=== PATIENT | female | born 1945 | race African-American/Black ===

== ENCOUNTER 2021-11-28 06:36 | Inpatient (IN) | payer OTHER ==
[~2021-11-28] VITALS: Ht 170.2 cm; Wt 99.8 kg
[2021-11-28 07:32] LABS: BASOPHILS % 0.3 % (0.0-1.0); EOSINOPHILS # (AUTO) 0.3 (0.0-0.4); EOSINOPHILS % 2.5 % (0.0-6.0); LYMPHOCYTES # (AUTO) 1.7 (1.0-3.2); LYMPHOCYTES % 17.2 % (18.0-39.1); MEAN CORPUSCULAR HEMOGLOBIN 31.6 pg (28-32); MEAN CORPUSCULAR HGB CONC 31.7 g/dL (31-35); MEAN CORPUSCULAR VOLUME 99.8 fL (81-99); MONOCYTES # (AUTO) 0.8 (0.2-0.8); MONOCYTES % 8.2 % (4.4-11.3); NEUTROPHILS % 71.4 % (38.7-80.0); PLATELET COUNT 232 x10e3/uL (140-360); RED BLOOD COUNT 4.11 x10e6/uL (3.6-5.1); RED CELL DISTRIBUTION WIDTH 12.9 % (11.7-14.4)
[2021-11-28] MEDS ORDERED: SODIUM CHLORIDE 0.9% 1000ML 1,000 ML ONE (07:34)
[2021-11-28] MEDS ORDERED: Clindamycin INJ 300 MG/50 ML 50 ML IV ONE (07:34)
[2021-11-28] MEDS ORDERED: LEVOFLOXACIN 500MG/D5W 100ML 100 ML IV ONE (07:46)
[2021-11-28 07:51] LABS: ANION GAP 16.1 mmol/L (8-16); BLOOD UREA NITROGEN 17 mg/dL (7-26); BUN/CREATININE RATIO 16 (6-25); CALCIUM 9.1 mg/dL (8.4-10.2); CARBON DIOXIDE 27 mmol/L (22-29); CHLORIDE 105 mmol/L (98-107); CREATININE, SERUM 1.04 mg/dL (0.57-1.11); GLUCOSE 176 mg/dL (74-118); POTASSIUM 4.1 mmol/L (3.5-5.1); SODIUM 144 mmol/L (136-145)
[2021-11-28] MEDS ORDERED: BUSPIRONE HCL10 MG PO (07:58)
[2021-11-28] MEDS ORDERED: MACROBID 100 M100 MG PO (07:58)
[2021-11-28] MEDS ORDERED: SERTRALINE HCL100 MG PO (07:58)
[2021-11-28] MEDS ORDERED: ATORVASTATIN CA20 MG PO (07:58)
[2021-11-28] MEDS ORDERED: TRAZODONE HCL50 MG PO (07:58)
[2021-11-28] MEDS ORDERED: POTASSIUM CHLO20 ME1 PO (07:58)
[2021-11-28] MEDS ORDERED: NEURONTIN300 MG PO (07:58)
[2021-11-28] MEDS ORDERED: LASIX40 MG PO (07:58)
[2021-11-28] MEDS ORDERED: COREG12.5 MG PO (07:58)
[2021-11-28] MEDS ORDERED: LOSARTAN POTAS100 MG PO (07:58)
[2021-11-28] MEDS ORDERED: TYLENOL PM EXS1 EACH (07:59)
[2021-11-28] MEDS ORDERED: IOPAMIDOL 610MG/1ML 300 MG/ML VIAL IV ONE (09:13)
[2021-11-28] MEDS ORDERED: B&O 60MG R/S 60 MG SUPP PR ONE (09:13)
[2021-11-28] MEDS ORDERED: LIDOCAINE 2% /EPINEPHRINE 20 ML SDV INJ ONE (09:18)
[2021-11-28] MEDS ORDERED: BUPIVACAINE 0.25% 30ML SDV ONE (09:19)
[2021-11-28] MEDS ORDERED: BACITRACIN ZINC 15 GM OINT ONE (09:19)
[2021-11-28] MEDS ORDERED: GENTAMICIN SULFATE 40 MG/ML 2 ML VIAL ONE (10:13)
[2021-11-28] MEDS ORDERED: NALOXONE HCL INJ 0.4 MG/ML AMP IV PRN (11:15)
[2021-11-28] MEDS ORDERED: PHENAZOPYRIDINE HCL 100 MG TAB PO PRN ×2 (11:15→14:30)
[2021-11-28] MEDS ORDERED: ONDANSETRON HCL INJ 2MG/ML 2ML 2 MG/ML VIAL IV PRN ×2 (11:15→14:30)
[2021-11-28] MEDS ORDERED: MORPHINE SULFATE 1 MG/ML 30ML PCA IV PRN (11:15)
[2021-11-28] MEDS ORDERED: Morphine 2mg Syringe 2 MG/ML SYR ONE (11:28)
[2021-11-28] MEDS ORDERED: DIPHENHYDRAMINE HCL INJ 50 MG/ML VIAL ONE (12:26)
[2021-11-28] MEDS ORDERED: LABETALOL HCL 20 ML ONE (12:50)
[2021-11-28 13:20] VITALS: BP 152/97
[2021-11-28] MEDS: SODIUM CHLORIDE 0.9% 1000ML 1,000 ML IV SCH ×2 (13:20→21:15)
[2021-11-28 13:44] LABS: BASOPHILS % 0.3 % (0.0-1.0); EOSINOPHILS # (AUTO) 0.1 (0.0-0.4); EOSINOPHILS % 0.6 % (0.0-6.0); HEMATOCRIT 40.7 % (34.2-44.1); HEMOGLOBIN 13.1 g/dL (12.0-16.0); LYMPHOCYTES % 9.2 % (18.0-39.1); MEAN CORPUSCULAR HEMOGLOBIN 32.3 pg (28-32); MEAN CORPUSCULAR HGB CONC 32.2 g/dL (31-35); MEAN CORPUSCULAR VOLUME 100.2 fL (81-99); MONOCYTES # (AUTO) 0.2 (0.2-0.8); MONOCYTES % 2.1 % (4.4-11.3); NEUTROPHILS # (AUTO) 9.4 (2.1-6.9); NEUTROPHILS % 87.2 % (38.7-80.0); PLATELET COUNT 224 x10e3/uL (140-360); RED BLOOD COUNT 4.06 x10e6/uL (3.6-5.1); RED CELL DISTRIBUTION WIDTH 13.1 % (11.7-14.4)
[2021-11-28] MEDS ORDERED: SEVOFLURANE INHAL SOLN 250 ML PEN BTL ONE (13:47)
[2021-11-28] MEDS ORDERED: LIDOCAINE HCL 2% LOCAL INJ 5 ML SDV VIAL INJ ONE (13:47)
[2021-11-28] MEDS ORDERED: PROPOFOL IV EMULSION 10 MG/ML 20 ML VIAL ONE (13:47)
[2021-11-28] MEDS ORDERED: DEXAMETHASONE SOD PHOS INJ 4 MG/ML SDV ONE (13:47)
[2021-11-28] MEDS ORDERED: FENTANYL CITRATE/PF 100MCG/2 ML INJ ONE (13:47)
[2021-11-28] MEDS ORDERED: POVIDONE IODINE 0.05% 0.05 % ML PO ONE (13:47)
[2021-11-28] MEDS ORDERED: MIDAZOLAM HCL 2 MG/2 ML VIAL ONE (13:47)
[2021-11-28] MEDS ORDERED: ONDANSETRON HCL INJ 2MG/ML 2ML 2 MG/ML VIAL ONE (13:47)
[2021-11-28 13:53] VITALS: BP 152/97
[2021-11-28 14:06] LABS: ANION GAP 15.7 mmol/L (8-16); CALCIUM 8.9 mg/dL (8.4-10.2); CREATININE, SERUM 0.96 mg/dL (0.57-1.11); POTASSIUM 4.7 mmol/L (3.5-5.1)
[2021-11-28] MEDS ORDERED: ALBUTEROL/IPRATROPIUM 3 ML NEB NEB PRN (14:30)
[2021-11-28] MEDS ORDERED: DEXTROSE 50% SYRINGE 50 ML IV PRN (14:30)
[2021-11-28] MEDS ORDERED: DIPHENHYDRAMINE HCL 25 MG CAP PO PRN (14:30)
[2021-11-28] MEDS ORDERED: BENZONATATE 100 MG CAP PO PRN (14:30)
[2021-11-28] MEDS ORDERED: DOCUSATE SODIUM 100 MG CAP PO PRN (14:30)
[2021-11-28] MEDS ORDERED: LIDOCAINE 4% PATCH TP PRN (14:30)
[2021-11-28] MEDS ORDERED: SIMETHICONE 80 MG CHEW PO PRN (14:30)
[2021-11-28] MEDS ORDERED: POTASSIUM CHLORIDE 20 MEQ TAB CR PO PRN (14:30)
[2021-11-28] MEDS ORDERED: ACETAMINOPHEN 325 MG TAB PO PRN (14:30)
[2021-11-28] MEDS: LEVOFLOXACIN 500MG/D5W 100ML 100 ML IV SCH (16:57)
[2021-11-28] MEDS: DOCUSATE SODIUM 100 MG CAP PO SCH (17:04)
[2021-11-28 18:14] VITALS: BP 176/83
[2021-11-28 20:00] VITALS: BP 177/82
[2021-11-28] MEDS: BUSPIRONE HCL 10 MG TABLET PO SCH (21:00)
[2021-11-28] MEDS: ATORVASTATIN 20 MG TAB PO SCH (21:00)
[2021-11-28] MEDS: SERTRALINE HCL 100 MG TAB PO SCH (21:00)
[2021-11-28] MEDS: CARVEDILOL 12.5 MG TAB PO SCH (21:00)
[2021-11-28] MEDS: TRAMADOL HCL 50 MG TAB PO PRN (22:18)
[2021-11-28] MEDS: HYDROMORPHONE 1MG/1ML INJ IV PRN (23:07)
[2021-11-29] VITALS (8 sets, daily range): BP systolic 176–204; BP diastolic 74–93
[2021-11-29 05:34] LABS: BASOPHILS % 0.2 % (0.0-1.0); EOSINOPHILS % 0.2 % (0.0-6.0); HEMATOCRIT 34.3 % (34.2-44.1); HEMOGLOBIN 10.9 g/dL (12.0-16.0); LYMPHOCYTES # (AUTO) 1.5 (1.0-3.2); LYMPHOCYTES % 13.9 % (18.0-39.1); MEAN CORPUSCULAR HEMOGLOBIN 31.5 pg (28-32); MEAN CORPUSCULAR HGB CONC 31.8 g/dL (31-35); MEAN CORPUSCULAR VOLUME 99.1 fL (81-99); MONOCYTES # (AUTO) 0.9 (0.2-0.8); MONOCYTES % 8.3 % (4.4-11.3); NEUTROPHILS # (AUTO) 8.1 (2.1-6.9); NEUTROPHILS % 77.1 % (38.7-80.0); PLATELET COUNT 191 x10e3/uL (140-360); RED BLOOD COUNT 3.46 x10e6/uL (3.6-5.1); RED CELL DISTRIBUTION WIDTH 12.4 % (11.7-14.4)
[2021-11-29 06:01] LABS: ANION GAP 12.9 mmol/L (8-16); CALCIUM 8.5 mg/dL (8.4-10.2); CREATININE, SERUM 0.74 mg/dL (0.57-1.11); POTASSIUM 3.9 mmol/L (3.5-5.1)
[2021-11-29] MEDS ORDERED: ONDANSETRON HCL 4 MG ORAL DISINTEGRATING TAB PO PRN (08:15)
[2021-11-29] MEDS: DOCUSATE SODIUM 100 MG CAP PO SCH ×2 (09:04→17:10)
[2021-11-29] MEDS: CARVEDILOL 12.5 MG TAB PO SCH ×2 (09:05→17:11)
[2021-11-29] MEDS: PANTOPRAZOLE SOD 40 MG TABEC PO SCH (09:06)
[2021-11-29] MEDS: BUSPIRONE HCL 10 MG TABLET PO SCH ×3 (09:06→20:57)
[2021-11-29] MEDS: DIPHENHYDRAMINE HCL 25 MG CAP PO PRN ×3 (09:08→19:51)
[2021-11-29] MEDS: SODIUM CHLORIDE 0.9% 1000ML 1,000 ML IV SCH ×2 (09:09→20:32)
[2021-11-29] MEDS ORDERED: ACETAMINOPHEN 1000 MG/100 ML IV PRN (09:15)
[2021-11-29] MEDS: TRAMADOL HCL 50 MG TAB PO PRN ×2 (09:16→19:27)
[2021-11-29] MEDS: LEVOFLOXACIN 500MG/D5W 100ML 100 ML IV SCH (16:00)
[2021-11-29] MEDS: LOSARTAN POTASSIUM 100 MG TAB PO SCH (17:10)
[2021-11-29] MEDS: HYDROMORPHONE 1MG/1ML INJ IV PRN (19:52)
[2021-11-29] MEDS: ATORVASTATIN 20 MG TAB PO SCH (20:56)
[2021-11-29] MEDS: GABAPENTIN 300 MG CAP PO SCH (20:57)
[2021-11-29] MEDS: SERTRALINE HCL 100 MG TAB PO SCH (20:57)
[2021-11-29] MEDS ORDERED: MELATONIN 5 MG TABLET PO PRN (21:15)
[2021-11-30] VITALS (8 sets, daily range): BP systolic 143–190; BP diastolic 60–83
[2021-11-30] MEDS: SODIUM CHLORIDE 0.9% 1000ML 1,000 ML IV SCH ×2 (03:15→13:15)
[2021-11-30 04:50] LABS: BASOPHILS # (AUTO) 0.1 (0.0-0.1); BASOPHILS % 0.4 % (0.0-1.0); EOSINOPHILS # (AUTO) 0.1 (0.0-0.4); EOSINOPHILS % 1.2 % (0.0-6.0); HEMATOCRIT 36.5 % (34.2-44.1); HEMOGLOBIN 11.9 g/dL (12.0-16.0); LYMPHOCYTES # (AUTO) 1.4 (1.0-3.2); LYMPHOCYTES % 12.2 % (18.0-39.1); MEAN CORPUSCULAR HEMOGLOBIN 31.1 pg (28-32); MEAN CORPUSCULAR HGB CONC 32.6 g/dL (31-35); MEAN CORPUSCULAR VOLUME 95.3 fL (81-99); MONOCYTES # (AUTO) 0.9 (0.2-0.8); MONOCYTES % 7.9 % (4.4-11.3); NEUTROPHILS # (AUTO) 9.1 (2.1-6.9); NEUTROPHILS % 77.8 % (38.7-80.0); PLATELET COUNT 214 x10e3/uL (140-360); RED BLOOD COUNT 3.83 x10e6/uL (3.6-5.1); RED CELL DISTRIBUTION WIDTH 12.7 % (11.7-14.4)
[2021-11-30 05:15] LABS: ANION GAP 14.8 mmol/L (8-16); CALCIUM 9.2 mg/dL (8.4-10.2); CREATININE, SERUM 0.8 mg/dL (0.57-1.11); POTASSIUM 3.8 mmol/L (3.5-5.1)
[2021-11-30] MEDS: PANTOPRAZOLE SOD 40 MG TABEC PO SCH (08:08)
[2021-11-30] MEDS: HYDROMORPHONE 1MG/1ML INJ IV PRN ×2 (08:08→17:14)
[2021-11-30] MEDS: DOCUSATE SODIUM 100 MG CAP PO SCH ×2 (10:00→17:18)
[2021-11-30] MEDS: GABAPENTIN 300 MG CAP PO SCH ×3 (10:00→21:40)
[2021-11-30] MEDS: BUSPIRONE HCL 10 MG TABLET PO SCH ×3 (10:00→21:40)
[2021-11-30] MEDS: LOSARTAN POTASSIUM 100 MG TAB PO SCH (10:00)
[2021-11-30] MEDS: CARVEDILOL 12.5 MG TAB PO SCH ×2 (10:00→17:18)
[2021-11-30] MEDS: DIPHENHYDRAMINE HCL 25 MG CAP PO PRN ×2 (10:24→18:50)
[2021-11-30] MEDS ORDERED: B&O 60MG R/S 60 MG SUPP PR PRN (16:30)
[2021-11-30] MEDS ORDERED: KETOROLAC TROMETHAMINE 30 MG/ML VIAL IM PRN (16:30)
[2021-11-30] MEDS: HYDRALAZINE HCL 25 MG TAB PO SCH (17:17)
[2021-11-30] MEDS: LEVOFLOXACIN 500MG/D5W 100ML 100 ML IV SCH (17:18)
[2021-11-30] MEDS: ATORVASTATIN 20 MG TAB PO SCH (21:40)
[2021-11-30] MEDS: SERTRALINE HCL 100 MG TAB PO SCH (21:41)
[2021-11-30] MEDS: INSULIN GLARGINE 100 UNITS/ML VIAL SQ SCH (21:55)
[2021-12-01] VITALS (9 sets, daily range): BP systolic 154–185; BP diastolic 64–81
[2021-12-01] MEDS: ACETAMINOPHEN 1000 MG/100 ML IV SCH ×3 (01:00→11:23)
[2021-12-01] MEDS: DIPHENHYDRAMINE HCL 25 MG CAP PO PRN ×5 (01:38→20:48)
[2021-12-01] MEDS: HYDROMORPHONE 1MG/1ML INJ IV PRN ×5 (02:10→20:48)
[2021-12-01 04:54] LABS: BASOPHILS % 0.2 % (0.0-1.0); EOSINOPHILS # (AUTO) 0.2 (0.0-0.4); EOSINOPHILS % 2.2 % (0.0-6.0); HEMATOCRIT 35.7 % (34.2-44.1); HEMOGLOBIN 11.5 g/dL (12.0-16.0); LYMPHOCYTES # (AUTO) 1.7 (1.0-3.2); LYMPHOCYTES % 16.7 % (18.0-39.1); MEAN CORPUSCULAR HEMOGLOBIN 31.1 pg (28-32); MEAN CORPUSCULAR HGB CONC 32.2 g/dL (31-35); MEAN CORPUSCULAR VOLUME 96.5 fL (81-99); MONOCYTES # (AUTO) 0.9 (0.2-0.8); MONOCYTES % 8.8 % (4.4-11.3); NEUTROPHILS # (AUTO) 7.3 (2.1-6.9); NEUTROPHILS % 71.5 % (38.7-80.0); PLATELET COUNT 209 x10e3/uL (140-360); RED CELL DISTRIBUTION WIDTH 12.6 % (11.7-14.4)
[2021-12-01 05:15] LABS: ANION GAP 13.6 mmol/L (8-16); CALCIUM 8.8 mg/dL (8.4-10.2); CREATININE, SERUM 0.82 mg/dL (0.57-1.11); POTASSIUM 3.6 mmol/L (3.5-5.1)
[2021-12-01] MEDS: BUSPIRONE HCL 10 MG TABLET PO SCH ×3 (10:25→20:47)
[2021-12-01] MEDS: HYDRALAZINE HCL 25 MG TAB PO SCH ×2 (10:26→17:47)
[2021-12-01] MEDS: DOCUSATE SODIUM 100 MG CAP PO SCH ×2 (10:26→17:47)
[2021-12-01] MEDS: GABAPENTIN 300 MG CAP PO SCH ×3 (10:27→20:47)
[2021-12-01] MEDS: LOSARTAN POTASSIUM 100 MG TAB PO SCH (10:27)
[2021-12-01] MEDS: PANTOPRAZOLE SOD 40 MG TABEC PO SCH (10:27)
[2021-12-01] MEDS: CARVEDILOL 12.5 MG TAB PO SCH ×2 (10:28→17:47)
[2021-12-01] MEDS: HYDRALAZINE HCL 20 MG/ML VIAL IV PRN ×2 (11:37→21:52)
[2021-12-01] MEDS: LEVOFLOXACIN 500MG/D5W 100ML 100 ML IV SCH (16:01)
[2021-12-01] MEDS: SERTRALINE HCL 100 MG TAB PO SCH (20:47)
[2021-12-01] MEDS: ATORVASTATIN 20 MG TAB PO SCH (20:47)
[2021-12-01] MEDS: INSULIN GLARGINE 100 UNITS/ML VIAL SQ SCH (21:30)
[2021-12-02] VITALS (9 sets, daily range): BP systolic 138–194; BP diastolic 58–93
[2021-12-02] MEDS: HYDROMORPHONE 1MG/1ML INJ IV PRN ×4 (04:00→21:28)
[2021-12-02] MEDS: DIPHENHYDRAMINE HCL 25 MG CAP PO PRN ×3 (04:16→15:18)
[2021-12-02] MEDS: HYDRALAZINE HCL 20 MG/ML VIAL IV PRN ×2 (05:44→21:00)
[2021-12-02 06:27] LABS: BASOPHILS % 0.3 % (0.0-1.0); EOSINOPHILS # (AUTO) 0.2 (0.0-0.4); EOSINOPHILS % 1.9 % (0.0-6.0); HEMOGLOBIN 10.8 g/dL (12.0-16.0); LYMPHOCYTES # (AUTO) 1.5 (1.0-3.2); MEAN CORPUSCULAR HGB CONC 31.8 g/dL (31-35); MEAN CORPUSCULAR VOLUME 97.7 fL (81-99); MONOCYTES # (AUTO) 0.9 (0.2-0.8); NEUTROPHILS # (AUTO) 7.2 (2.1-6.9); NEUTROPHILS % 73.2 % (38.7-80.0); PLATELET COUNT 224 x10e3/uL (140-360); RED BLOOD COUNT 3.48 x10e6/uL (3.6-5.1); RED CELL DISTRIBUTION WIDTH 12.9 % (11.7-14.4)
[2021-12-02 06:49] LABS: ANION GAP 13.8 mmol/L (8-16); CALCIUM 8.7 mg/dL (8.4-10.2); CREATININE, SERUM 0.89 mg/dL (0.57-1.11); POTASSIUM 3.8 mmol/L (3.5-5.1)
[2021-12-02] MEDS: PANTOPRAZOLE SOD 40 MG TABEC PO SCH (09:21)
[2021-12-02] MEDS: LOSARTAN POTASSIUM 100 MG TAB PO SCH (09:22)
[2021-12-02] MEDS: BUSPIRONE HCL 10 MG TABLET PO SCH ×3 (09:22→21:27)
[2021-12-02] MEDS: GABAPENTIN 300 MG CAP PO SCH ×3 (09:22→21:27)
[2021-12-02] MEDS: HYDRALAZINE HCL 25 MG TAB PO SCH ×2 (09:22→16:52)
[2021-12-02] MEDS: DOCUSATE SODIUM 100 MG CAP PO SCH ×2 (09:22→16:51)
[2021-12-02] MEDS: CARVEDILOL 12.5 MG TAB PO SCH ×2 (09:23→16:53)
[2021-12-02] MEDS: LEVOFLOXACIN 500MG/D5W 100ML 100 ML IV SCH (16:02)
[2021-12-02] MEDS: SERTRALINE HCL 100 MG TAB PO SCH (21:27)
[2021-12-02] MEDS: ATORVASTATIN 20 MG TAB PO SCH (21:27)
[2021-12-02] MEDS: INSULIN GLARGINE 100 UNITS/ML VIAL SQ SCH (21:30)
[2021-12-03] VITALS (8 sets, daily range): BP systolic 131–204; BP diastolic 52–89
[2021-12-03] MEDS: HYDRALAZINE HCL 20 MG/ML VIAL IV PRN (06:00)
[2021-12-03] MEDS: HYDROMORPHONE 1MG/1ML INJ IV PRN (06:34)
[2021-12-03] MEDS: HYDRALAZINE HCL 25 MG TAB PO SCH ×2 (08:19→17:32)
[2021-12-03] MEDS: DOCUSATE SODIUM 100 MG CAP PO SCH ×2 (08:19→17:32)
[2021-12-03] MEDS: PANTOPRAZOLE SOD 40 MG TABEC PO SCH (08:19)
[2021-12-03] MEDS: GABAPENTIN 300 MG CAP PO SCH ×3 (08:20→21:38)
[2021-12-03] MEDS: BUSPIRONE HCL 10 MG TABLET PO SCH ×3 (08:20→21:38)
[2021-12-03] MEDS: LOSARTAN POTASSIUM 100 MG TAB PO SCH (08:20)
[2021-12-03] MEDS: CARVEDILOL 12.5 MG TAB PO SCH ×2 (08:21→17:32)
[2021-12-03] MEDS: DIPHENHYDRAMINE HCL 25 MG CAP PO PRN (08:25)
[2021-12-03] MEDS ORDERED: HYDROXYZINE HCL 25 MG TAB PO PRN (09:15)
[2021-12-03] MEDS ORDERED: HYDROXYZINE HCL 25 MG TAB PO ONE (10:00)
[2021-12-03] MEDS: TRAMADOL HCL 50 MG TAB PO PRN (12:42)
[2021-12-03] MEDS: LEVOFLOXACIN 500MG/D5W 100ML 100 ML IV SCH (16:26)
[2021-12-03] MEDS: INSULIN GLARGINE 100 UNITS/ML VIAL SQ SCH (21:00)
[2021-12-03] MEDS: SERTRALINE HCL 100 MG TAB PO SCH (21:38)
[2021-12-03] MEDS: ATORVASTATIN 20 MG TAB PO SCH (21:38)
[2021-12-04] VITALS: BP 175/75
[2021-12-04 04:00] VITALS: BP 194/86
[2021-12-04] MEDS: HYDRALAZINE HCL 20 MG/ML VIAL IV PRN (04:02)
[2021-12-04] MEDS: PANTOPRAZOLE SOD 40 MG TABEC PO SCH (08:25)
[2021-12-04] MEDS: BUSPIRONE HCL 10 MG TABLET PO SCH (08:26)
[2021-12-04] MEDS: DOCUSATE SODIUM 100 MG CAP PO SCH (08:26)
[2021-12-04] MEDS: HYDRALAZINE HCL 25 MG TAB PO SCH (08:26)
[2021-12-04] MEDS: CARVEDILOL 12.5 MG TAB PO SCH (08:27)
[2021-12-04] MEDS: LOSARTAN POTASSIUM 100 MG TAB PO SCH (08:28)
[2021-12-04] MEDS: GABAPENTIN 300 MG CAP PO SCH (08:28)
[2021-12-04] MEDS ORDERED: DEXTROSE 50% SYRINGE 50 ML IV PRN (08:30)
[2021-12-04] MEDS: TRAMADOL HCL 50 MG TAB PO PRN (08:34)
[2021-12-04 08:54] VITALS: BP 198/71
[2021-12-04] MEDS ORDERED: INSULIN LISPRO 100 UNIT/1 ML 3ML VIAL SQ SCH (11:30)
[2021-12-04 12:21] VITALS: BP 170/80
[2021-12-04] MEDS ORDERED: LEVOFLOXACIN 500 MG TAB PO SCH (16:00)
== END 2021-12-04 13:10 | disposition home or self-care (01) | DRG 748 ==
LOC: OR 06:36 → PACU V 11:16 → MED/SURG 13:48 → MED/SURG2 11-30 20:25
PROVIDERS: ADMIT Internal Medicine; ATTEND Internal Medicine
PROC: 0UU Female Reproductive System, Supplement (ICD-10-PCS; 2021-11-28)
PROC: 0T788ZZ Dilation of Bilateral Ureters, Via Natural or Artificial Opening Endoscopic (ICD-10-PCS; 2021-11-28)
PROC: BT141ZZ Fluoroscopy of Kidneys, Ureters and Bladder using Low Osmolar Contrast (ICD-10-PCS; 2021-11-28)
PROC: 0TSD0ZZ Reposition Urethra, Open Approach (ICD-10-PCS; principal; 2021-11-28 09:24)
PROC: 0JUC0KZ Supplement of Pelvic Region Subcutaneous Tissue and Fascia with Nonautologous Tissue Substitute, Open Approach (ICD-10-PCS; 2021-11-28 09:24)
DX: N81.12 Cystocele, lateral (principal); N39.0 Urinary tract infection, site not specified; N39.3 Stress incontinence (female) (male); R31.29 Other microscopic hematuria; Z20.822 Contact with and (suspected) exposure to COVID-19; F32.A Depression, unspecified; E78.5 Hyperlipidemia, unspecified; G62.9 Polyneuropathy, unspecified; Z88.5 Allergy status to narcotic agent; Z88.0 Allergy status to penicillin; Z88.2 Allergy status to sulfonamides; Z88.6 Allergy status to analgesic agent; Z91.041 Radiographic dye allergy status; Z91.040 Latex allergy status; Z91.81 History of falling; E11.42 Type 2 diabetes mellitus with diabetic polyneuropathy; E66.9 Obesity, unspecified; Z68.34 Body mass index [BMI] 34.0-34.9, adult; N81.6 Rectocele; N95.2 Postmenopausal atrophic vaginitis; D64.9 Anemia, unspecified; E11.69 Type 2 diabetes mellitus with other specified complication; E78.00 Pure hypercholesterolemia, unspecified; N28.89 Other specified disorders of kidney and ureter; M19.90 Unspecified osteoarthritis, unspecified site; I10 Essential (primary) hypertension; E03.9 Hypothyroidism, unspecified
CPT/HCPCS: 0223U; 36415; 71046; 74420; 80048; 82948; 83735; 85025; 93005; 94799; 97139; C1713; C1752; C1758; J0360; J1100; J1170; J1200; J1580; J1815; J1956; J2001; J2250; J2270; J2405; J3010; J3410; J7030